=== PATIENT | female | born 1985 | race African-American/Black ===

== ENCOUNTER → 2017-03-29 | Outpatient (CLI) | payer OTHER ==
[~2017-03-29] MED LIST: ALESSE-281 EACH; BACTRIM; BACTRIM DS TAB1 EACH PO; BENTYL20 MG PO; FEMCON FE TABL1 EACH PO; IBUPROFEN 600600 M1 PO; METFORMIN 500500 MG PO; METFORMIN HCL500 MG PO; METROGEL-VAGINA70 GM VG; NOHOMEMEDICATIONS; NORCO 5-325 TA1 EACH PO; PERCOCET 5-3251 EACH PO; PHENERGAN 25 MG25 M1 PO; PHENERGAN 25 MG25 MG PO; PRENATAL; TERAZOL 745 GM VG; VICODIN 5-5001 EACH PO; VITAMIN D 5050000 I1
== END ==
LOC: GI 07:59
DX: K21.9 Gastro-esophageal reflux disease without esophagitis (principal); E11.9 Type 2 diabetes mellitus without complications; E66.01 Morbid (severe) obesity due to excess calories; Z98.84 Bariatric surgery status

== ENCOUNTER → 2017-04-05 | Outpatient (CLI) | payer OTHER ==
[~2017-04-05] VITALS: Ht 170.2 cm; Wt 149.7 kg
--- NOTE | ~2017-04-05 | O ---
[facility] [place] [address] OPERATIVE REPORT Name: MARLIN GUARDADO Room #: REG [facility]#: [id number] Admission: 04/05/17 Attend Phys: Kojo Boyce MD, F Discharge: Date of : 83 Report #: [id number] THIS REPORT FOR: //name// CC: FAM unknown Kojo Boyce DATE OF SERVICE: 04/05/2017 SURGEON: Kojo Boyce MD. METAL MOLDER: None. PREPROCEDURE DIAGNOSES: 1. Morbid obesity. 2. History of laparoscopic sleeve gastrectomy. 3. Diabetes mellitus. 4. Multiple sclerosis. POSTOPERATIVE DIAGNOSES: 1. Morbid obesity. 2. History of laparoscopic sleeve gastrectomy. 3. Enlarged gastric sleeve. 4. Diabetes mellitus. 5. Multiple sclerosis. PROCEDURE: Thorough esophagogastroduodenoscopy. ANESTHESIA: Monitored anesthetic care (propofol 110 mg). ESTIMATED BLOOD LOSS: None. SPECIMENS: None. COMPLICATIONS: None appreciated. INDICATIONS FOR PROCEDURE: This is a 31-year-old female patient who underwent a laparoscopic sleeve gastrectomy in 07/2014 at the [facility]. Over 1-1/2 years, she dropped her weight by 120 pounds, but has since increased her weight by 65 pounds to her current weight of 345 pounds with a BMI of 54. She required steroid treatment for multiple sclerosis after which she began to regain her weight and has been unable to lose her added weight. She underwent an upper GI on 03/29/2017, which revealed gastroesophageal reflux and a fairly normal capacity stomach despite the history of previous gastric sleeve surgery. She presents now for an EGD. DESCRIPTION OF PROCEDURE IN DETAIL: After the risks, benefits, and expectations [facility] [address] [place] [address] OPERATIVE REPORT Name: MARLIN GUARDADO Carole Room #: REG [facility].#: [id number] Admission: 04/05/17 Attend Phys: Kojo Boyce MD F Discharge: Date of : 83 Report #: [id number] of the procedure were explained to the patient, informed consent was obtained. The patient was identified in the preoperative holding area. She was then taken to the procedure room and she was placed in the supine position. A time-out was performed to identify the correct patient and procedure. The patient was then given IV sedation and this was titrated throughout the procedure. A bite block was placed. When the patient was adequately sedated, the gastroscope was inserted into the patient's oropharynx, passed down the esophagus into the stomach and beyond the pylorus to the third portion of the duodenum. The scope was then slowly withdrawn. Findings are that the GE junction and Z-line were measured at 39 cm from the teeth. A tightened area was seen at 42 cm from the teeth, initially felt to represent a hiatal hernia; however, on retroflexion, a hiatal hernia was not present, but rather the cardia of the stomach extended cephalad. The body of the stomach was relatively normal in size and shape, and the distal staple line was felt to have been seen in the lower body of the stomach. The antrum of the stomach and stomach along the greater curvature appeared relatively normal as well. No polyps, diverticula, masses, or ulcers were seen in the stomach or duodenum. Retroflexion of the scope showed similar findings. Scope was then straightened and slowly withdrawn. No other pathology was identified other than an enlarged sleeve that was relatively normal in size. The scope did retroflex in the interim and was able to be retroflexed and withdrawn up into the cardia. The scope was straightened and slowly withdrawn through the normal appearing esophagus. The patient tolerated the procedure well. She was awakened and taken to the recovery room in stable condition with no apparent procedural complications. Recommendation is that the patient undergo revisional sleeve gastrectomy. The patient will keep her regularly scheduled followup appointment with me. By: [id number] Kojo Boyce MD, FACS /nt
== END | disposition home or self-care (01) ==
LOC: GI 05:45
DX: E66.01 Morbid (severe) obesity due to excess calories (principal); E11.9 Type 2 diabetes mellitus without complications; G35 Multiple sclerosis; Z98.84 Bariatric surgery status; Z79.899 Other long term (current) drug therapy; Z68.43 Body mass index [BMI] 50.0-59.9, adult

== ENCOUNTER 2017-07-04 10:11 | Emergency (ER) | payer OTHER ==
[~2017-07-04] VITALS: Ht 170.2 cm; Wt 158.8 kg
[2017-07-04 10:49] LABS: URINE BILIRUBIN NEGATIVE (Negative); URINE BLOOD NEGATIVE (Negative); URINE CLARITY CLEAR; URINE COLOR YELLOW; URINE GLUCOSE-RANDOM* NEGATIVE (Negative); URINE KETONES NEGATIVE (Negative); URINE LEUKOCYTES-REFLEX NEGATIVE (Negative); URINE NITRITE-REFLEX NEGATIVE (Negative); URINE PROTEIN (DIPSTICK) NEGATIVE (Negative); URINE SPECIFIC GRAVITY >= 1.030 (1.005-1.035); URINE UROBILINOGEN 0.2 E.U./dl (0.2-1.0)
[2017-07-04] MEDS ORDERED: PYRIDIUM200 MG PO (10:55)
[2017-07-04] MEDS ORDERED: KEFLEX500 M1 PO (10:55)
[2017-07-04 11:01] VITALS: BP 134/90
[2017-07-21] MEDS ORDERED: VITAMIN D-32000 UNIT PO (07:51)
== END 2017-07-04 11:01 ==
LOC: ER 10:11
PROVIDERS: Emergency Medicine
DX: R30.0 Dysuria (principal); G35 Multiple sclerosis; E11.9 Type 2 diabetes mellitus without complications; Z98.890 Other specified postprocedural states

== ENCOUNTER 2017-07-28 05:21 | Inpatient (IN) | payer OTHER ==
[~2017-07-28] VITALS: Ht 170.2 cm; Wt 162.8 kg
[2017-07-28] VITALS (7 sets, daily range): BP systolic 129–170; BP diastolic 68–95
--- NOTE | ~2017-07-28 | S ---
[facility] [place] [address] SURGICAL PATH RPT PROCEDURE Name: MARLIN ZEPEDA Room #: 410-P ADM IN M.R.#: [id number] Admission: 07/28/17 Date of : 83 Discharge: Report #: [id number] Path Case #: [id number] PATHOLOGY REPORT COLLECTION DATE: 07/28/2017 RECEIVED DATE: 07/28/2017 SUBMITTING PHYS: Dr. Kojo Boyce OTHER PHYS: Dr. Govind Ascencio SPECIMEN(S) RECEIVED: A.Gastric sleeve * * * * * * * * * * * * FINAL DIAGNOSIS: Gastric sleeve, partial sleeve gastrectomy: - Mild chronic inflammation, history of morbid obesity. - Negative for intestinal metaplasia or atrophy. (IUV:mgr; 07/29/2017) PATHOLOGIST: Khushi Richardson M.D. REPORT ELECTRONICALLY SIGNED BY: Khushi Richardson M.D. DATE/TIME: 07/29/2017 13:08 * * * * * * * * * * * * GROSS PATHOLOGY: The specimen is received in formalin, labeled "Marlin Zepeda, gastric sleeve". Received is a partial gastrectomy specimen with a stapled margin of resection measuring 16.4 x 3.5 cm in greatest dimensions. The serosal surface is pink-vanegas and unremarkable. Opening the specimen reveals a pink-vanegas mucosa displaying is normal folds. No polyps or mass lesions identified. The specimen is submitted representatively in cassettes A1-A3. (SDY; 07/28/2017) CLINICAL HISTORY: Morbid obesity INITIAL CPT CODE(S): A; 66389 Professional services performed by [facility] at [facility] [address], [place] [address] Technical services performed by [facility] at [address] [place] [id number]. [facility] [address] [place] [address] SURGICAL PATH RPT PROCEDURE Name: MARLIN ZEPEDA Room #: 410-P [facility] IN .R.#: [id number] Admission: 07/28/17 Date of : 83 Discharge: Report #: [id number] Path Case #: [id number] [facility] [address] [address] PHONE: [phone] DIRECTOR: Walter Bentley M.D. * * * END OF REPORT * * *
--- NOTE | ~2017-07-28 | O ---
[facility] [place] [address] OPERATIVE REPORT Name: MARLIN GUARDADO Room #: 410-P [facility]..#: [id number] Admission: 07/28/17 Attend Phys: Kojo Boyce MD, F Discharge: 07/29/17 Date of : 83 Report #: [id number] THIS REPORT FOR: //name// CC: FAM unknown Kojo Boyce DATE OF SERVICE: 07/28/2017 SURGEON: Kojo Boyce MD CLAIMS TECHNICIAN: Govind Ascencio MD PREOPERATIVE DIAGNOSES: 1. Super morbid obesity (body mass index 55), status post previous laparoscopic sleeve gastrectomy. 2. Diabetes mellitus. POSTOPERATIVE DIAGNOSES: 1. Super morbid obesity (body mass index 55), status post previous laparoscopic sleeve gastrectomy. 2. Diabetes mellitus. PROCEDURE: Revisional laparoscopic sleeve gastrectomy with EGD. ANESTHESIA: General endotracheal anesthesia and local anesthetic. ESTIMATED BLOOD LOSS: 10 mL. SPECIMEN: Lateral stomach remnant. COMPLICATIONS: None appreciated. INDICATIONS FOR PROCEDURE: This is a 31-year-old female patient with a history of diabetes mellitus. She is super morbidly obese with a body mass index of 55.3 at her last office visit. She underwent a laparoscopic sleeve gastrectomy in July 2014, at [facility]. Prior to that operation, the patient weighed 400 pounds. Over 1-1/2 years, the patient lost 120 pounds, but has since gained weight to her current weight. She has been unable to lose significant weight with diet and exercise changes she has instituted based on our previous discussions. She does have a history of multiple sclerosis and required steroid treatment, after which time she began to regain her weight. She has been studied with an EGD and upper GI. These revealed a relatively normal-sized stomach. The patient has less satiety than immediately after her initial sleeve gastrectomy. She presents now for revisional bariatric surgery. [facility] [address] [place] [address] OPERATIVE REPORT Name: MARLIN GUARDADO Room #: 410-P [facility] IN [facility].#: [id number] Admission: 07/28/17 Attend Phys: Kojo Boyce MD, F Discharge: 07/29/17 Date of : 83 Report #: [id number] OPERATIVE FINDINGS: The patient's EGD was normal. The GE junction and Z-line were measured at 38 cm at the teeth. There was no evidence for hiatal hernia. Upon entrance into the stomach, no polyps, diverticula, masses, or ulcers were seen. On retroflexion of the scope, a hiatal hernia was not appreciated. The stomach was insufflated and appeared to be relatively normal in size. There was no evidence for a hiatal hernia. Laparoscopically , the patient's stomach appeared to be a relatively normal size, although slightly decreased at the upper body of the stomach. She had postoperative changes, as expected and not outside, normal adhesions otherwise. The patient's liver was slightly steatotic without dwayne steatohepatitis. The small-bowel and colon in the surrounding area appeared otherwise normal. The gastric sleeve staple line was located 4 cm lateral/proximal to the pylorus, 3 cm lateral to the incisura, and 1 cm lateral to the GE junction. There was no evidence for staple line leak. Immediately after applying Tisseel to the gastric sleeve staple line, carbon dioxide was insufflated into the gastric sleeve and no air bubbles were seen forming within the Tisseel laparoscopically. Endoluminally, there was no bleeding and the mucosa was smooth and well contoured. No other significant intra-abdominal pathology was seen and there was no evidence for iatrogenic injury. At the conclusion of the operation, the sponge, needle, and instrument counts were correct. The excised stomach held 300 mL of fluid. DESCRIPTION OF PROCEDURE IN DETAIL: After the risks, benefits and expectations of the operation were discussed in detail with the patient, informed consent was obtained. The patient was identified in the preoperative holding area. She was given IV antibiotics as documented in the chart in line with SCIP metrics. She was also given Lovenox and a scopolamine patch was placed. The patient was then taken to the operating room and she was placed in the supine position. SCDs were placed on the patient's bilateral lower extremities and pneumatic compression was initiated. The patient was given IV sedation and she was intubated without incident. An orogastric tube and bite block were placed by anesthesia under my direction. The patient was placed in the low lying dorsal lithotomy position in [facility], secured to the operating room table. A time-out was then performed to identify the correct patient and procedure. The gastroscope was inserted into the patient's oropharynx and passed down the esophagus into the stomach and beyond the pylorus to the third portion of the duodenum. The scope was then slowly withdrawn. With the scope retroflexed in the antrum of the stomach, the cardia was visualized and there was no evidence for hiatal hernia. The scope was then straightened and slightly withdrawn. Suction was applied to the stomach with the orogastric tube. The patient's abdomen was then prepped and draped in the standard sterile fashion. Local anesthetic was infiltrated into the skin and subcutaneous tissue in the left supraumbilical area where a small transverse incision was made. A [facility] [address] [place] [address] OPERATIVE REPORT Name: MARLIN GUARDADO Room #: [address] [place] [address]#: [id number] Admission: 07/28/17 Attend Phys: Kojo Boyce MD, F Discharge: 07/29/17 Date of : 83 Report #: [id number] 5-mm Visiport was placed intraperitoneally with a 0-degree angled laparoscope. Pneumoperitoneum was achieved with insufflation of carbon dioxide to 15 mmHg. A 30-degree angled laparoscope was then inserted. A right mid abdominal 15-mm port was placed under direct visualization after local anesthetic was infiltrated into the skin and subcutaneous tissue and an appropriately sized incision was made. Additional 5-mm ports were placed in the left mid and left lateral abdomen using the same technique. The patient was then placed in the reverse Trendelenburg position. A subxiphoid 5-mm incision was made after local anesthetic was infiltrated into the skin and subcutaneous tissue. A 5-mm Visiport obturator was used to penetrate the fascia. The Patito liver retractor was then positioned and held in place with the [employer] apparatus. The patient was placed in the reverse Trendelenburg position. Findings are as noted above. The scar tissue and omentum to the lateral aspect of the stomach was then divided with the ultrasonic dissector with good hemostasis up to the left yony of the diaphragm. Dissection continued along the lateral/inferior stomach to an area that was measured to be 4 cm lateral/proximal to the pylorus. The stomach was then rotated medially and all posterior attachments were taken down to identify the posterior aspect of the lesser curvature of the stomach. The orogastric tube was then removed by anesthesia under my direction. The gastroscope was left in place along the lesser curvature of the stomach to serve as a 34-Macedonian bougie. The sleeve was then created with the 60-mm powered endoscopic RAMÓN stapler in a distal to proximal fashion. All staple loads were buttressed with Ariella-Strips. The initial two firings of the stapler were with black loads; the remaining loads were green loads. The stomach was then transected and removed through the 15-mm port site. An 0 PDS suture was placed with the Félix-Amira laparoscopic fascial closure device. The suture was tagged and the port was replaced. A leak test was performed next. 10 mL of Tisseel was applied to the gastric sleeve staple line using the Kast aerosolizer with good coverage of the entire staple line. Immediately after doing so, the gastroscope was used to gently insufflate carbon dioxide into the gastric sleeve and the leak test as described above was negative. Endoluminally, there was no bleeding and the contour was smooth. The gastroscope was fully removed. The abdominal cavity was surveyed and no other significant pathology was seen. There was no evidence for intragenic injury. The Patito liver retractor was then removed under direct visualization. The 15-mm port site fascial suture was tied under direct visualization to ensure no incorporation of intra-abdominal content. The abdominal cavity was then desufflated and the remaining ports were removed. Interrupted subcuticular 4-0 Monocryl sutures and Dermabond were used to close the skin incisions. The patient tolerated the procedure well. She was [address] [address] OPERATIVE REPORT Name: MARLIN GUARDADO Room #: 410-P [facility] IN M.R.#: [id number] Admission: 07/28/17 Attend Phys: Kojo Boyce MD, F Discharge: 07/29/17 Date of : 83 Report #: [id number] awakened, extubated, and taken to the recovery room in stable condition with no apparent intraoperative complications. <ELECTRONICALLY SIGNED> By: Kojo Boyce MD, FACS 08/03/17 0848 [id number] Kojo Boyce MD, FACS /nt
[~2017-07-28 05:21] MED LIST changes: +KEFLEX500 M1 PO; +PYRIDIUM200 MG PO; +VITAMIN D-32000 UNIT PO
[2017-07-29] VITALS: BP 109/60
[2017-07-29 04:00] VITALS: BP 142/71
[2017-07-29 04:05] LABS: ABSOLUTE NEUTROPHILS 8.5 thou/uL (1.4-8.2); BASOPHILS 0.2 % (0.0-2.0); HEMATOCRIT 30.3 % (37.0-47.0); HEMOGLOBIN 9.5 gm/dL (12.0-15.0); LYMPHOCYTES 16.4 % (24.0-44.0); MCH 23.2 pg (26.0-34.0); MCHC 31.4 g/dL (28.0-37.0); MONOCYTES 8.4 % (1.0-8.0); PLATELET COUNT 386 thou/uL (150-400); RBC 4.09 mil/uL (4.20-5.00); RDW 15.9 % (10.5-14.5); WBC 11.3 thou/uL (4.0-11.0)
[2017-07-29 04:21] LABS: CREATININE 0.9 mg/dL (0.6-1.0); POTASSIUM 3.5 mmol/L (3.5-5.1)
[2017-07-29 07:47] VITALS: BP 145/83
[2017-07-29] MEDS ORDERED: HYDROCODON-ACE118 ML PO (09:15)
[2017-07-29] MEDS ORDERED: ZOFRAN ODT4 MG PO (09:15)
[2017-07-29 11:05] VITALS: BP 145/83
== END 2017-07-29 13:44 | disposition home or self-care (01) | DRG 621 ==
LOC: TBA 05:21 → 4N 05:21 → PRE 15:29 → ENTRNSPT 07-29 13:41 → EDTRNSPTSTS 07-29 13:42 → 4N 07-29 13:44
PROVIDERS: Surgery
PROC: 0DB64Z3 Excision of Stomach, Percutaneous Endoscopic Approach, Vertical (ICD-10-PCS; principal; 2017-07-28)
DX: E66.01 Morbid (severe) obesity due to excess calories (principal); Z68.43 Body mass index [BMI] 50.0-59.9, adult; E11.9 Type 2 diabetes mellitus without complications
CPT/HCPCS: 10790; 50010; 50101; 50222; 50249; 50386; 50555; 50739; 50740; 50962; 51436; 51437; 51489; 52182; 52265; 53307; 53311; 54022; 54118; 55245; 56462; 56525; 56526; 57092; 62110; 62900; 70005

== ENCOUNTER → 2017-08-01 | Outpatient (CLI) | payer OTHER ==
[~2017-08-01] MED LIST changes: +HYDROCODON-ACE118 ML PO; +ZOFRAN ODT4 MG PO
== END ==
LOC: CAT 12:40
DX: I27.82 Chronic pulmonary embolism (principal)

== ENCOUNTER 2019-06-16 10:31 | Emergency (ER) | payer OTHER ==
[~2019-06-16] VITALS: Ht 170.2 cm; Wt 101.2 kg
[2019-06-16 10:51] LABS: URINE BILIRUBIN NEGATIVE (Negative); URINE BLOOD TRACE (Negative); URINE CLARITY CLEAR; URINE COLOR YELLOW; URINE GLUCOSE-RANDOM* NEGATIVE (Negative); URINE KETONES TRACE (Negative); URINE NITRITE-REFLEX NEGATIVE (Negative); URINE PROTEIN (DIPSTICK) 1+ (Negative); URINE SPECIFIC GRAVITY >= 1.030 (1.005-1.035)
[2019-06-16 10:54] LABS: URINE LEUKOCYTES-REFLEX 1+ (Negative)
[2019-06-16 11:03] LABS: CASTS None Seen /LPF (None Seen); CRYSTALS None Seen /LPF (None Seen); URINE WBC-REFLEX 6-15 Few /HPF (0-5)
[2019-06-16 11:04] LABS: BACTERIA-REFLEX 1-9 Few /HPF (None Seen); SQUAMOUS 0-3 Few /LPF (0-3); URINE RBC 0-2 Rare /HPF (0-2)
[2019-06-16 11:12] LABS: ABSOLUTE NEUTROPHILS 3.4 thou/uL (1.4-8.2); BASOPHILS 0.2 % (0.0-2.0); EOSINOPHILS 0.3 % (0.0-3.0); HEMATOCRIT 33.6 % (37.0-47.0); HEMOGLOBIN 10.6 gm/dL (12.0-15.0); LYMPHOCYTES 20.1 % (24.0-44.0); MCH 22.3 pg (26.0-34.0); MCHC 31.6 g/dL (28.0-37.0); MCV 70.7 fL (80.0-100.0); MONOCYTES 11.1 % (1.0-8.0); PLATELET COUNT 361 thou/uL (150-400); POLYS 68.3 % (36.0-66.0); RBC 4.74 mil/uL (4.20-5.00); RDW 19.5 % (10.5-14.5)
[2019-06-16 11:18] LABS: CALCIUM 9.3 mg/dL (8.5-10.1); CREATININE 0.9 mg/dL (0.6-1.0); POTASSIUM 3.8 mmol/L (3.5-5.1)
[2019-06-16 11:24] LABS: ALBUMIN 3.7 g/dL (3.4-5.0); TOTAL BILIRUBIN 0.2 mg/dL (<0.1-1.0); TOTAL PROTEIN 8.4 g/dL (6.4-8.2)
[2019-06-16] MEDS ORDERED: LOPERAMIDE 2 MG2 M1 PO (11:50)
[2019-06-16] MEDS ORDERED: CLEOCIN HCL150 MG PO (11:50)
[2019-06-16] MEDS ORDERED: DIFLUCAN150 MG PO (12:13)
[2019-06-16] MEDS ORDERED: MACROBID 100 M100 MG PO (12:13)
[2019-06-16] MEDS ORDERED: MOBIC7.5 MG PO (12:13)
[2019-06-16 12:25] LABS: ANISOCYTOSIS 2+; MICROCYTES 2+; PLATELET ESTIMATE NORMAL; SCHISTOCYTES 1+
[2019-06-16 13:06] VITALS: BP 119/69
== END 2019-06-16 13:17 | disposition home or self-care (01) ==
LOC: ER 10:31
PROVIDERS: Emergency Medicine; Physician Assistant
DX: L02.414 Cutaneous abscess of left upper limb (principal); N39.0 Urinary tract infection, site not specified; R19.7 Diarrhea, unspecified; R11.2 Nausea with vomiting, unspecified; G35 Multiple sclerosis; Z98.890 Other specified postprocedural states

== ENCOUNTER 2020-03-22 08:51 | Emergency (ER) | payer OTHER ==
[~2020-03-22] VITALS: Ht 170.2 cm; Wt 104.3 kg
[~2020-03-22 08:51] MED LIST changes: +CLEOCIN HCL150 MG PO; +DIFLUCAN150 MG PO; +LOPERAMIDE 2 MG2 M1 PO; +MACROBID 100 M100 MG PO; +MOBIC7.5 MG PO
[2020-03-22 09:14] LABS: URINE BILIRUBIN NEGATIVE (Negative); URINE BLOOD NEGATIVE (Negative); URINE CLARITY SL CLOUDY; URINE COLOR YELLOW; URINE GLUCOSE-RANDOM* NEGATIVE (Negative); URINE KETONES NEGATIVE (Negative); URINE LEUKOCYTES-REFLEX TRACE (Negative); URINE NITRITE-REFLEX NEGATIVE (Negative); URINE PROTEIN (DIPSTICK) NEGATIVE (Negative); URINE SPECIFIC GRAVITY 1.025 (1.005-1.035)
[2020-03-22] MEDS ORDERED: AZO URINARY P99.5 MG PO (09:26)
[2020-03-22] MEDS ORDERED: NITROFURANTOIN100 MG PO (09:26)
[2020-03-22 10:50] VITALS: BP 130/76
== END 2020-03-22 10:58 | disposition home or self-care (01) ==
LOC: ER 08:51
PROVIDERS: Emergency Medicine
DX: N39.0 Urinary tract infection, site not specified (principal); Z98.890 Other specified postprocedural states

== ENCOUNTER 2020-07-19 08:08 | Emergency (ER) | payer OTHER ==
[~2020-07-19] VITALS: Ht 170.2 cm; Wt 104.3 kg
[~2020-07-19 08:08] MED LIST changes: +AZO URINARY P99.5 MG PO; +NITROFURANTOIN100 MG PO
[2020-07-19 08:24] VITALS: BP 140/75
[2020-07-19] MEDS ORDERED: VITAMIN D31250 MC1 PO (08:28)
[2020-07-19] MEDS ORDERED: ENBRACE HR SOF1 EACH PO (08:28)
[2020-07-19 09:34] LABS: URINE BILIRUBIN NEGATIVE (Negative); URINE BLOOD 2+ (Negative); URINE CLARITY SL CLOUDY; URINE COLOR YELLOW; URINE GLUCOSE-RANDOM* NEGATIVE (Negative); URINE KETONES NEGATIVE (Negative); URINE LEUKOCYTES-REFLEX TRACE (Negative); URINE NITRITE-REFLEX NEGATIVE (Negative); URINE PROTEIN (DIPSTICK) NEGATIVE (Negative); URINE UROBILINOGEN 0.2 E.U./dl (0.2-1.0)
[2020-07-19] MEDS ORDERED: TYLENOL325 M1 PO (09:59)
[2020-07-19] MEDS ORDERED: ZOFRAN ODT4 MG PO (09:59)
[2020-07-19 10:01] LABS: CASTS None Seen /LPF (None Seen); CRYSTALS None Seen /LPF (None Seen); SQUAMOUS 4-10 Moderate /LPF (0-3)
[2020-07-19 10:02] LABS: URINE RBC 3-10 Few /HPF (0-2); URINE WBC-REFLEX 6-15 Few /HPF (0-5)
== END 2020-07-19 10:09 | disposition home or self-care (01) ==
LOC: ER 08:08
PROVIDERS: Emergency Medicine
DX: O20.0 Threatened abortion (principal); Z79.899 Other long term (current) drug therapy; Z3A.08 8 weeks gestation of pregnancy